=== PATIENT | female | born 1990 | race Caucasian/White ===

== ENCOUNTER 2016-12-16 20:04 | Emergency (ER) | payer BC, OTHER ==
[2016-12-16] MEDS ORDERED: Ketorolac 30 MG/ML SDV IM ONE (20:24)
--- NOTE | 2016-12-16 20:29 | EDM.PDOC ---
[id number] HEADACHE Time Seen by Provider: 12/16/16 20:05 Source of Information: Reports: Patient, Family History Limitations: Reports: No Limitations - History of Present Illness INITIAL COMMENTS - FREE TEXT/NARRATIVE: Anjelica comes into [facility] ED with a febrile illness that began 4 days ago, associated with chills, low grade fever, headache, bachache and diarrhea. A rash appeared within the past 24 hrs on the upper torso. She has missed 2 days of work. There is no neck pain, sore throat, cough, nausea or vomiting, and she is not aware of any BRB or mucous in the stools. She is not aware of any exposure, although she did eat tacos at [facility] Thursday pm. She has been taking Tylenol for sxs. Headache Pain Score (Numeric/FACES): 10 - Related Data Allergies Allergy/AdvReac Type Severity Reaction Status Date / Time amoxicillin Allergy Hives Verified 12/16/16 20:16 Penicillins Allergy Hives Verified 12/16/16 20:16 artificial grape flavoring Allergy Hives Uncoded 12/16/16 20:16 Home Meds: Home Meds Escitalopram Oxalate [Lexapro] 20 mg PO DAILY 12/16/16 [History] Past Medical History - Past Health History Medical/Surgical History: Denies Medical/Surgical History Psychiatric History: Reports: Anxiety, Depression Social & Family History - Tobacco Use Smoking Status *Q: Current Every Day Smoker Years of Tobacco use: 10 Packs/Tins Daily: 0.5 - Caffeine Use Caffeine Use: Reports: Coffee, Energy Drinks, Soda - Recreational Drug Use Recreational Drug Use: No ED ROS GENERAL - Review of Systems Review Of Systems: See Below Constitutional: Reports: Fever, Chills, Malaise HEENT: Reports: No Symptoms Respiratory: Reports: No Symptoms Cardiovascular: Reports: No Symptoms Endocrine: Reports: No Symptoms GI/Abdominal: Reports: Diarrhea : Reports: No Symptoms Musculoskeletal: Reports: Back Pain Skin: Reports: Rash (urticaria eruption on upper torso and shoulders last pm) Neurological: Reports: Headache, Other (some photosensitivity) Psychiatric: Reports: No Symptoms Hematologic/Lymphatic: Reports: No Symptoms Immunologic: Reports: No Symptoms ED EXAM, GENERAL - Physical Exam Exam: See Below Exam Limited By: No Limitations General Appearance: Alert, WD/WN, Anxious, Mild Distress Eye Exam: Bilateral Eye: EOMI, Normal Inspection, PERRL Ears: Normal External Exam, Normal TMs Nose: Normal Inspection Throat/Mouth: Normal Inspection, Normal Lips, Normal Gums, Normal Oropharynx, Normal Voice Head: Normocephalic Neck: Normal Inspection, Supple, Non-Tender, Full Range of Motion Respiratory/Chest: Lungs Clear, Normal Breath Sounds Cardiovascular: Regular Rate, Rhythm, No Murmur GI/Abdominal: Normal Bowel Sounds, Soft, Non-Tender, No Organomegaly, No Distention, No Mass Back Exam: Normal Inspection Extremities: Normal Inspection, Normal Range of Motion, Non-Tender, No Pedal Edema Neurological: Alert, Oriented, CN II-XII Intact, Normal Cognition, Normal Gait, No Motor/Sensory Deficits Psychiatric: Anxious Skin Exam: Warm, Dry, Rash (urticarial-like eruption appearing on the upper shoulders and over the upper portion of the breasts) Lymphatic: No Adenopathy Course - Vital Signs Text/Narrative:: Anjelica was assessed at the [facility] ED, and an IV was started in the RUE and administered Toradol 30 mg IM, 1L of NS with improvement in back pain, Temp 97 deg F on recheck, and voiding. Screening labwork noted Na 127 , K 3.6, and mild elevations of AST and ALT. The UA was baseline. She was clinically improved at time of discharge. Last Recorded V/S: Last Vital Signs Temp 36.3 C 12/16/16 22:00 Pulse 87 12/16/16 22:00 Resp 18 12/16/16 22:00 BP 125/84 12/16/16 22:00 Pulse Ox 100 12/16/16 22:00 - Orders/Labs/Meds Orders: Active Orders 24 hr Category Date Time Status Peripheral IV Insertion Adult [OM.PC] Routine Oth 12/16/16 20:58 Ordered Labs: Laboratory Tests 12/16/16 12/16/16 12/16/16 Range/Units 20:25 20:25 20:51 WBC 5.5 (4.5-12.0) X10-3/uL RBC 5.42 H (3.23-5.20) x10(6)uL Hgb 14.9 (11.5-15.5) g/dL Hct 45.0 (30.0-51.3) % MCV 83.0 (80-96) fL MCH 27.6 L (27.7-33.6) pg MCHC 33.2 (32.2-35.4) g/dL RDW 12.0 (11.5-15.5) % Plt Count 136 (125-369) X10(3)uL MPV 8.8 (7.4-10.4) fL Neut % (Auto) 67.5 (46-82) % Lymph % (Auto) 14.5 (13-37) % [place] % (Auto) 11.4 (4-12) % Eos % (Auto) 4 (1.0-5.0) % Baso % (Auto) 2 (0-2) % Neut # (Auto) 3.8 (1.6-8.3) # Lymph # (Auto) 0.8 (0.6-5.0) # [place] # (Auto) 0.6 (0.0-1.3) # Eos # (Auto) 0.2 (0.0-0.8) # Baso # (Auto) 0.1 (0.0-0.2) # Sodium 127 L (135-145) mmol/L Potassium 3.6 (3.5-5.3) mmol/L Chloride 94 L (100-110) mmol/L Carbon Dioxide 21 L (23-29) mmol/L BUN 14 (5-20) mg/dL Creatinine 0.8 (0.6-1.3) mg/dL Est Cr Clr Drug Dosing 88.15 mL/min Estimated GFR (MDRD) > 60 (>60) BUN/Creatinine Ratio 17.5 (9-20) Glucose 106 (80-116) mg/dL Calcium 9.1 (8.6-10.2) mg/dL Total Bilirubin 0.7 (0.1-1.3) mg/dL AST 61 H (5-27) IU/L ALT 52 H (14-26) IU/L Alkaline Phosphatase 82 (56-112) IU/L Total Protein 8.1 H (6.0-8.0) g/dL Albumin 4.0 (3.5-5.2) g/dL Globulin 4.1 g/dL Albumin/Globulin Ratio 1.0 Urine Color Yellow (YELLOW) Urine Appearance Clear (CLEAR) Urine pH 6.0 (5.0-6.5) Ur Specific [place] 1.015 (1.010-1.025) Urine Protein Negative (NEGATIVE) mg/dL Urine Glucose (UA) Normal (NEGATIVE) mg/dL Urine Ketones 15 H (NEGATIVE) mg/dL Urine Occult Blood Trace (NEGATIVE) Urine Nitrite Negative (NEGATIVE) Urine Bilirubin Negative (NEGATIVE) Urine Urobilinogen Normal (NEGATIVE) mg/dL Ur Leukocyte Esterase Negative (NEGATIVE) Urine RBC 0-5 (0) Urine WBC 0-5 (0) Ur Squamous Epith Cells Moderate H (NS,R,O) Urine Bacteria Moderate H (NS) Urine Mucus Moderate H (NS) Meds: Medications Discontinued Medications Generic Name Dose Route Start Last Admin Trade Name Freq PRN Reason Stop Dose Admin Sodium Chloride 1,000 mls @ 999 mls/hr 12/16/16 21:00 12/16/16 21:20 Normal Saline IV 999 mls/hr ASDIRECTED ANDREW Administration Ketorolac Tromethamine 30 mg 12/16/16 20:24 12/16/16 20:28 Toradol IM 12/16/16 20:25 30 mg ONETIME ONE Administration Ondansetron HCl 4 mg 12/16/16 20:58 12/16/16 22:16 Zofran IVPUSH 12/16/16 20:59 Not Given ONETIME ONE Sodium Chloride 10 ml 12/16/16 20:58 Saline Flush FLUSH ASDIRECTED PRN Keep Vein Open Sodium Chloride 10 ml 12/16/16 20:58 Saline Flush FLUSH ASDIRECTED PRN Keep Vein Open Departure - Departure Time of Disposition: 22:20 Disposition: Home, Self-Care 01 Condition: Fair Clinical Impression: Enteroviral enteritis, Hyponatremia - Discharge Information Instructions: Viral Gastroenteritis, Adult, [id number] Referrals: Marito Lucia MD [Primary Care Provider] - Forms: ED Department Discharge Additional Instructions: Stay adequately hydrated, monitor your temperature and use motrin every 4-6 hrs as needed for an elevated temperature. If diarrhea persists, use imodium to control as needed. Follow up with your PCP - Problem List & Annotations (1) Enteroviral enteritis SNOMED Code(s): 83380654, 279832150 Code(s): A08.39 - OTHER VIRAL ENTERITIS Status: Acute Annotation/Comment: : Manage current illness as a enteroviral illness with diarrhea and rash, consider hydration, Imodium for control of diarrhea, and rest. A note for work was provided. (2) Hyponatremia SNOMED Code(s): 46152998 Code(s): E87.1 - HYPO-OSMOLALITY AND HYPONATREMIA Status: Acute Annotation/Comment:: Hydration recommended. - Problem List Review Problem List Initiated/Reviewed/Updated: Yes - My Orders Last 24 Hours: My Active Orders 12/16/16 20:58 Peripheral IV Insertion Adult [OM.PC] Routine - Assessment/Plan Last 24 Hours: My Active Orders 12/16/16 20:58 Peripheral IV Insertion Adult [OM.PC] Routine Plan: Follow up with PCP if needed.
[2016-12-16] MEDS ORDERED: Ondansetron 4 MG/2 ML SDV IVPUSH ONE (20:58)
[2016-12-16] MEDS ORDERED: Sodium Chloride 0.9% 10 ML Syringe FLUSH PRN ×2 (20:58)
[2016-12-16] MEDS ORDERED: Sodium Chloride 0.9% 1,000 ML IV SCH (21:00)
[2016-12-16 22:20] VITALS: BP 125/84
== END 2016-12-16 22:10 | disposition home or self-care (01) ==
LOC: FB.ED 20:04
DX: A08.39 Other viral enteritis (principal); E87.1 Hypo-osmolality and hyponatremia; F17.210 Nicotine dependence, cigarettes, uncomplicated; F32.9 Major depressive disorder, single episode, unspecified; Z88.0 Allergy status to penicillin; Z88.1 Allergy status to other antibiotic agents; Z91.02 Food additives allergy status
CPT/HCPCS: 36415; 80053; 81001; 85025; 96360; 96372; 99284; J1885; J7040